=== PATIENT | male | born 1970 | race Caucasian/White ===

== ENCOUNTER 2018-01-05 15:16 | Emergency (ER) | payer OTHER ==
[~2018-01-05] VITALS: Ht 162.6 cm; Wt 81.7 kg
[2018-01-05] MEDS ORDERED: CARBAMAZEPINE200 M5 PO (15:37)
[2018-01-05] MEDS ORDERED: PEPCID20 MG PO (15:37)
[2018-01-05] MEDS ORDERED: ASPIR 8181 MG PO (15:37)
[2018-01-05] MEDS ORDERED: CARBAMAZEPINE100 M2 PO (15:37)
[2018-01-05] MEDS ORDERED: PROZAC20 MG PO (15:38)
[2018-01-05] MEDS ORDERED: INVEGA 3 MG3 MG PO (15:38)
[2018-01-05] MEDS ORDERED: OYSTER SHELL C500 MG PO (15:38)
[2018-01-05] MEDS ORDERED: PAXIL10 MG PO (15:39)
[2018-01-05] MEDS ORDERED: ALDACTONE50 MG PO (15:41)
[2018-01-05] MEDS ORDERED: GABAPENTIN 100100 MG PO (15:41)
[2018-01-05] MEDS ORDERED: LAMICTAL100 MG PO (15:42)
[2018-01-05] MEDS ORDERED: KEPPRA 500 MG500 M1 PO (15:42)
[2018-01-05] MEDS ORDERED: VIMPAT200 MG PO (15:42)
[2018-01-05] MEDS ORDERED: REMERON15 MG PO (15:43)
[2018-01-05] MEDS ORDERED: CARBAMAZEPINE400 M1 PO (15:43)
[2018-01-05] MEDS ORDERED: MINIPRESS2 MG PO (15:44)
[2018-01-05] MEDS ORDERED: PROAIR HFA8.5 GM (15:44)
[2018-01-05 16:08] LABS: ABSOLUTE NEUTROPHILS 5.4 thou/uL (1.4-8.2); BASOPHILS 0.7 % (0.0-2.0); HEMATOCRIT 42.1 % (42.0-52.0); HEMOGLOBIN 14.1 gm/dL (14.0-18.0); LYMPHOCYTES 25.1 % (24.0-44.0); MCH 32.3 pg (26.0-34.0); MCHC 33.6 g/dL (28.0-37.0); MCV 96.2 fL (80.0-100.0); MONOCYTES 6.5 % (1.0-8.0); PLATELET COUNT 228 thou/uL (150-400); POLYS 65.7 % (36.0-66.0); RBC 4.37 mil/uL (4.50-6.00); RDW 13.2 % (10.5-14.5); WBC 8.2 thou/uL (4.0-11.0)
[2018-01-05 16:11] LABS: CALCIUM 9.2 mg/dL (8.5-10.1); CREATININE 0.9 mg/dL (0.7-1.3); POTASSIUM 4.3 mmol/L (3.5-5.1)
[2018-01-05 19:32] VITALS: BP 129/91
== END 2018-01-05 18:48 | disposition home or self-care (01) ==
LOC: ER 15:16
PROVIDERS: Emergency Medicine
DX: G40.89 Other seizures (principal); F20.9 Schizophrenia, unspecified; Z88.2 Allergy status to sulfonamides; Z91.048 Other nonmedicinal substance allergy status; Z88.1 Allergy status to other antibiotic agents; Z88.8 Allergy status to other drugs, medicaments and biological substances

== ENCOUNTER 2018-06-10 18:13 | Inpatient (IN) | payer OTHER ==
[~2018-06-10] VITALS: Ht 167.6 cm; Wt 104.8 kg
--- NOTE | ~2018-06-10 | HC ---
[facility] [place] [address] CONSULTATION Name: YENY CASIANO Room #: 208-[facility] IN M.R.#: [id number] Admission: 06/10/18 Attend Phys: Kerry Melara MD Discharge: Date of : 66 Report #: [id number] THIS REPORT FOR: //name// CC: Johnnie Melara DATE OF SERVICE: 06/11/2018 HISTORY OF PRESENT ILLNESS: This is a 47-year-old male patient who does not provide any reliable history. This patient indicates that he lives in a shelter. He has apparently a longstanding history of seizure disorder. He usually sees Dr. Garrison, who is an epileptologist at [facility]. I do not have any records from them. The patient indicates he gets about 1 seizure a month. He indicates that he may have had another seizure, but he does not remember anything. Talking to the Emergency Room doctor, it would indicate that he may have had more than 1 seizure. The patient has not had any further seizure after coming here. He has a VNS placed. He is on numerous medications. As I understand, attempt is being made to cut back those medications. REVIEW OF SYSTEMS: It is not clear what started his seizures. His history is very poor. Records indicate he also has schizophrenia. He will not give me an answer for one way or another. He does have a history of depression and COPD. Record indicates he also has some dementia. That is his relevant 14-point review of system. PAST MEDICAL HISTORY: Positive for seizure. FAMILY HISTORY: Negative for epilepsy. SOCIAL HISTORY: He does not drink alcohol. PHYSICAL EXAMINATION: Indicates that this patient is alert, responsive and he can follow simple commands. He can tell me what month it is. His cranial nerve examination 2-12 looks unremarkable. Rest of the neurological examination appeared to be his baseline. He has no meningeal sign. He has no carotid bruit. He is moderately built individual. He does not have much dysmorphic features of eyes, ears and face. His cardiac examination is unremarkable. He did have a CT scan in the Emergency Room that did not show any acute process. IMPRESSION AND PLAN: After restarting his medication, he does not appear to have any further seizure. I do not think we should change his medication much. I had talked to the Emergency Room physician last night about difficulty managing patients like this here because we do not have anything, which can be done to the vagus nerve stimulator. The only thing I will suggest is restart the medication and if he continues to do well, he should get an appointment with [address] [address] CONSULTATION Name: YENY CASIANO Room #: 208-P [facility] IN M.R.#: [id number] Admission: 06/10/18 Attend Phys: Kerry Melara MD Discharge: Date of : 66 Report #: [id number] Garrison as soon as possible, but presently, I do not think we should change his medication. More than 50 minutes of time was spent taking care of this patient and majority of that time was spent counseling the patient on above matter as well as coordinating his care. I also talked to his nurses about this patient. I had talked to the nurses earlier today and asked then to call the hospitalist to make sure he is started on the same medication he was on at the shelter and the hospitalist can call me if there is any question <ELECTRONICALLY SIGNED> By: Johnnie Smith MD 06/11/18 2249 1356 1953 Johnnie Smith MD /nt
--- NOTE | ~2018-06-10 | EKG ---
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 06/11/18 0744 1821 20 Saad Castro MD, FACC /EPI
--- NOTE | ~2018-06-10 | EEG ---
[facility] [place] [address] ELECTROENCEPHALOGRAM Name: YENY CASIANO Room #: 208-P [facility] IN M.R.#: [id number] Admission: 06/10/18 Attend Phys: Kerry Melara MD Discharge: Date of : 66 Report #: [id number] THIS REPORT FOR: //name// CC: Johnnie Torresulugajaky Melara DATE OF SERVICE: 06/11/2018 This patient is being evaluated for the possibility of seizure. EEG was done by placing the electrodes by standard 10-20 system of electrode placement. Both referential and sequential montages were used for recording. Background activity does go up to about 9-10 Hz and 30 microvolt. Photic stimulation is unremarkable. The patient's EEG is unstable because it intermittently shows pretty significant slowing on both sides and some suggestion of sharper activity appeared to be present in the left temporal area. Photic stimulation is unremarkable. IMPRESSION: This electroencephalogram is abnormal because it appeared to be unstable where intermittently it becomes pretty slow and somewhat disorganized. That may be because of drowsiness, but some sharper activity appeared to be present arising from the left temporal area. The patient does not show any evidence of status epilepticus. Thank you very much for this referral. By: 1346 1353 Johnnie Smith MD /nt
[~2018-06-10 18:13] MED LIST: ALDACTONE50 MG PO; ASPIR 8181 MG PO; CARBAMAZEPINE100 M2 PO; CARBAMAZEPINE200 M5 PO; CARBAMAZEPINE400 M1 PO; INVEGA 3 MG3 MG PO; KEPPRA 500 MG500 M1 PO; LAMICTAL100 MG PO; MINIPRESS2 MG PO; NEURONTIN600 MG PO; OYSTER SHELL C500 MG PO; PAXIL10 MG PO; PEPCID20 MG PO; PROAIR HFA8.5 GM INH; PROZAC20 MG PO; REMERON15 MG PO; VIMPAT200 MG PO
[2018-06-10 18:14] VITALS: BP 133/87
[2018-06-10 18:40] LABS: ABSOLUTE NEUTROPHILS 4.6 thou/uL (1.4-8.2); BASOPHILS 0.8 % (0.0-2.0); EOSINOPHILS 2.4 % (0.0-3.0); HEMATOCRIT 41.9 % (42.0-52.0); HEMOGLOBIN 14.5 gm/dL (14.0-18.0); LYMPHOCYTES 30.4 % (24.0-44.0); MCH 32.6 pg (26.0-34.0); MCHC 34.5 g/dL (28.0-37.0); MCV 94.4 fL (80.0-100.0); MONOCYTES 7.9 % (1.0-8.0); PLATELET COUNT 212 thou/uL (150-400); POLYS 58.5 % (36.0-66.0); RBC 4.44 mil/uL (4.50-6.00); RDW 12.7 % (10.5-14.5); WBC 7.9 thou/uL (4.0-11.0)
[2018-06-10 18:49] LABS: CALCIUM 9.2 mg/dL (8.5-10.1); CREATININE 0.9 mg/dL (0.7-1.3); POTASSIUM 3.6 mmol/L (3.5-5.1)
[2018-06-10 18:55] LABS: ALBUMIN 3.7 g/dL (3.4-5.0); MAGNESIUM 1.8 mg/dL (1.8-2.4); PHOSPHORUS 4.6 mg/dL (2.5-4.9); TOTAL BILIRUBIN 0.3 mg/dL (<0.1-1.0); TOTAL PROTEIN 7.9 g/dL (6.4-8.2)
[2018-06-10 22:44] VITALS: BP 94/62
[2018-06-10 22:52] VITALS: BP 114/62
[2018-06-10 23:12] VITALS: BP 128/87
[2018-06-11 00:20] LABS: AMP/METHAMP Negative (Negative); BARBITURATES Negative (Negative); BENZODIAZEPINES Negative (Negative); COCAINE Negative (Negative); METHADONE Negative (Negative); OPIATES Negative (Negative); PCP Negative (Negative)
[2018-06-11] MEDS ORDERED: CARBAMAZEPINE400 M1 PO (02:47)
[2018-06-11] MEDS ORDERED: OMEPRAZOLE40 MG PO (02:52)
[2018-06-11] MEDS ORDERED: FLONASE 0.05%50 MCG NASAL (02:55)
[2018-06-11] MEDS ORDERED: ZOLOFT50 MG PO (02:58)
[2018-06-11] MEDS ORDERED: SYMBICORT80 MCG/4.1 INH (03:02)
[2018-06-11] MEDS ORDERED: TYLENOL325 MG PO ×2 (03:04→08:09)
[2018-06-11 04:57] VITALS: BP 110/71
[2018-06-11 08:39] VITALS: BP 128/75
[2018-06-11 11:10] VITALS: BP 107/68
[2018-06-11 12:04] VITALS: BP 128/75
[2018-06-11 14:41] VITALS: BP 122/73
[2018-06-11 14:58] LABS: TSH 3.952 uIU/mL (0.358-3.740)
[2018-06-11 19:55] VITALS: BP 111/67
[2018-06-12 04:45] VITALS: BP 110/70
[2018-06-12 07:21] VITALS: BP 110/73
[2018-06-12 11:10] VITALS: BP 100/61
[2018-06-12] MEDS ORDERED: ASPIR 8181 MG PO (12:29)
[2018-06-12] MEDS ORDERED: VIMPAT200 MG PO (12:33)
[2018-06-12 15:03] VITALS: BP 100/68
[2018-06-12 19:55] VITALS: BP 110/66
[2018-06-13 05:05] VITALS: BP 104/69
[2018-06-13 08:40] VITALS: BP 101/59
[2018-06-13 12:44] VITALS: BP 125/79
[2018-06-14 08:13] LABS: LEVETIRACETAM (KEPPRA) 60.6 ug/mL (10.0-40.0)
== END 2018-06-13 14:37 | DRG 100 ==
LOC: ER 18:13 → 2N 21:55 → EROBS 21:55 → 2N 22:57
PROVIDERS: Emergency Medicine; Nurse Practitioner Acute Care; Psychiatry & Neurology Neuromuscular Medicine
DX: G40.909 Epilepsy, unspecified, not intractable, without status epilepticus (principal); G93.41 Metabolic encephalopathy; F03.90 Unspecified dementia, unspecified severity, without behavioral disturbance, psychotic disturbance, mood disturbance, and anxiety; K21.9 Gastro-esophageal reflux disease without esophagitis; F20.9 Schizophrenia, unspecified; F17.210 Nicotine dependence, cigarettes, uncomplicated; J44.9 Chronic obstructive pulmonary disease, unspecified; F32.9 Major depressive disorder, single episode, unspecified; Z90.49 Acquired absence of other specified parts of digestive tract; Z28.21 Immunization not carried out because of patient refusal; Z88.2 Allergy status to sulfonamides; Z88.8 Allergy status to other drugs, medicaments and biological substances; Z79.899 Other long term (current) drug therapy
CPT/HCPCS: 10081

== ENCOUNTER 2018-07-23 22:14 | Emergency (ER) | payer OTHER ==
[~2018-07-23] VITALS: Ht 165.1 cm; Wt 95.3 kg
[~2018-07-23 22:14] MED LIST changes: +FLONASE 0.05%50 MCG NASAL; +OMEPRAZOLE40 MG PO; +SYMBICORT80 MCG/4.1 INH; +TYLENOL325 MG PO; +ZOLOFT50 MG PO
[2018-07-23 22:46] LABS: ABSOLUTE NEUTROPHILS 4.6 thou/uL (1.4-8.2); BASOPHILS 0.6 % (0.0-2.0); HEMATOCRIT 40.4 % (42.0-52.0); HEMOGLOBIN 13.9 gm/dL (14.0-18.0); LYMPHOCYTES 34.4 % (24.0-44.0); MCH 32.6 pg (26.0-34.0); MCHC 34.5 g/dL (28.0-37.0); MCV 94.6 fL (80.0-100.0); MONOCYTES 7.2 % (1.0-8.0); PLATELET COUNT 223 thou/uL (150-400); POLYS 54.8 % (36.0-66.0); RBC 4.27 mil/uL (4.50-6.00); RDW 12.8 % (10.5-14.5); WBC 8.3 thou/uL (4.0-11.0)
[2018-07-23 22:49] LABS: ANION GAP 12 mmol/L (7-16); BUN 11 mg/dL (7-18); CALCIUM 9.2 mg/dL (8.5-10.1); CHLORIDE 104 mmol/L (98-107); CO2 25 mmol/L (21-32); CREATININE 0.9 mg/dL (0.7-1.3); GLUCOSE 145 mg/dL (74-106); SODIUM 141 mmol/L (136-145)
[2018-07-23 22:58] LABS: ALBUMIN 3.6 g/dL (3.4-5.0); SGOT 21 U/L (15-37); SGPT 32 U/L (30-65); TOTAL BILIRUBIN 0.2 mg/dL (<0.1-1.0); TOTAL PROTEIN 7.4 g/dL (6.4-8.2); TROPONIN-I <0.06 ng/mL (<0.06)
[2018-07-24 01:32] VITALS: BP 115/62
--- NOTE | 2018-07-24 18:26 | EKG ---
[address] [address] ELECTROCARDIOGRAM REPORT Name: YENY CASIANO Room #: [facility] Hyde#: [id number] Admission: 07/23/18 Attend Phys: Discharge: 07/24/18 Date of : 66 Report #: [id number] THIS REPORT FOR: //name// [facility] ED Test Date: 2018-07-23 Test Time: 22:21:09 Pat Name: YENY CASIANO Department: Room: Gender: Software Sales Consultant: CONNIE : 1970 Requested By: Soledad Lyon Order Number: [id number] MD: Kael Greenfield Measurements Intervals [place] Rate: 73 P: 40 RI: 157 QRS: 0 QRSD: 87 T: 83 QT: 379 QTc: 418 Interpretive Statements Sinus rhythm Compared to ECG 06/10/2018 18:21:18 ST (T wave) deviation no longer present Electronically Signed On 07-24-2018 18:26:49 DIRECT SALES CONSULTANT by Kael Greenfield [email or web address] <ELECTRONICALLY SIGNED> By: Kael Greenfield MD 07/24/18 1826 20 20 Kael Greenfield MD /MAEVE
== END 2018-07-24 01:32 | disposition home or self-care (01) ==
LOC: ER 22:14
PROVIDERS: Student in an Organized Health Care Education/Training Program
DX: R07.89 Other chest pain (principal); K21.9 Gastro-esophageal reflux disease without esophagitis; J44.9 Chronic obstructive pulmonary disease, unspecified; F20.9 Schizophrenia, unspecified; F32.9 Major depressive disorder, single episode, unspecified; F03.90 Unspecified dementia, unspecified severity, without behavioral disturbance, psychotic disturbance, mood disturbance, and anxiety; Z90.49 Acquired absence of other specified parts of digestive tract; Z88.2 Allergy status to sulfonamides; Z88.8 Allergy status to other drugs, medicaments and biological substances; F17.210 Nicotine dependence, cigarettes, uncomplicated

== ENCOUNTER 2019-03-05 10:15 | Inpatient (IN) | payer OTHER ==
[~2019-03-05] VITALS: Ht 165.1 cm; Wt 98.9 kg
--- NOTE | ~2019-03-05 | EMS ---
[address] [address] EMS Patient Care Report Name: YENY CASIANO Room #: 170-9 ADM IN M.R.#: [id number] Admission: 03/05/19 Attend Phys: Raimundo Ziegler MD Discharge: Date of : 66 Report #: [id number] THIS REPORT FOR: //name// Report Transmitted: 03/05/2019 12:28 EMS Care Summary [place], [place]/[facility] Incident [id number] @ 03/05/2019 09:44 Incident Location [id number] [place] [address] 108 Patient YENY CASIANO Male, 48 Years 1970 Patient Address [id number] [place] [address] [address] [place] [id number] Patient History Chronic Obstructive Pulmonary Disease (COPD),Seizures,Depression,Schizoaffective Disorder, Patient Allergies Sulfa,Dilantin,Topamax, Patient Medications Ventolin, Acetaminophen, Aspirin, Levetiracetam, Gabapentin, Sertraline, Symbicort, Carbamazepine, Omeprazole, Chief Complaint Altered mental status Disposition Transported No Lights/[place] Reason Convulsions/Seizure Transported To [facility] Narrative 48 y/o male with altered mental status. [facility] [address] [place] [address] EMS Patient Care Report Name: YENY CASIANO Room #: 170-9 ADM IN Mary Ellen#: [id number] Admission: 03/05/19 Attend Phys: Raimundo Ziegler MD Discharge: Date of : 66 Report #: [id number] On arrival found pt in PR bed with staff on scene. PR staff stated pt had been complaining of abdominal pain earlier this morning but when they came to check on him before they called 911 he was altered. Staff stated normally he is alert and talking without difficulty but now he is not acting normal. EMS spoke pt's name and he would look at EMS but then would have a vacant stare and appeared to not be focusing on anything. Staff stated pt has a hx of seizures. Pt appeared to possibly be having absence seizures. Pt sat up in bed and with assistance transferred to the stretcher. Once in ambulance EMS attempted an IV x2. Pt would pull back from the IV start and yell "Oww" but would have no other reaction. Staff stated there was no hospital on pt's chart so EMS took pt to closest hospital, [facility] ED. EMS monitored pt/VS/ECG en route to [facility] ED. Transferred care of pt to [facility] ED RN without incident. Initial Vitals @10:10P: 66,BP: 109/73,SpO2: 94, @09:59P: 72,R: 18,BP: 142/88,Pain: 0/10,GCS: 13,Glucose: 91,CO: 4,SpO2: 95,Revised Trauma: 12, Assessments @09:52MENTAL:Other,Person Oriented,SKIN:No Abnormalities,HEENT:Head/Face: No Abnormalities,Eyes: No Abnormalities,Neck/Airway: No Abnormalities,LUNG SOUNDS:General: No Abnormalities,Left Upper: No Abnormalities,Right Upper: No Abnormalities,Left Lower: No Abnormalities,Right Lower: No Abnormalities,ABDOMEN:General: No Abnormalities,Left Upper: No Abnormalities,Right Upper: No Abnormalities,Left Lower: No Abnormalities,Right Lower: No Abnormalities,PELVIS//GI:No Abnormalities,EXTREMITIES:Capillary Refill: Left Upper: < 2 Sec,Left Arm: No Abnormalities,Right Arm: No Abnormalities,Left Leg: No Abnormalities,Right Leg: No Abnormalities,PULSE:Radial: 2+ Normal,NEURO:No Abnormalities, Impression Altered Mental Status Procedures @09:52ALS AssessmentResponse: Not ApplicableSucceeded@10:03Saline Lock 0cc (20 ga) Site: Hand-LeftResponse: UnchangedFailed@10:00Saline Lock 0cc (20 ga) Site: Antecubital-LeftResponse: UnchangedFailed Timeline 09:43,Call Received 09:43,Dispatch Notified 09:44,Dispatched 09:46,[place] [address] EMS Patient Care Report Name: YENY CASIANO Room #: 170-9 ADM IN ..#: [id number] Admission: 03/05/19 Attend Phys: Raimundo Ziegler MD Discharge: Date of : 66 Report #: [id number] 09:50,On Scene 09:52,At Patient 09:52,ALS Assessment,Response: Not ApplicableSucceeded, 09:59,BP: 142/88 M,PULSE: 72,RR: 18 R,SPO2: 95 Ox,ETCO2: ,B,PAIN: 0,GCS: 13, 10:00,Saline Lock 0cc 20 ga Site: Antecubital-Left,Response: UnchangedFailed, 10:03,Saline Lock 0cc 20 ga Site: Hand-Left,Response: UnchangedFailed, 10:06,Depart Scene 10:10,BP: 109/73 M,PULSE: 66,RR: R,SPO2: 94 Ox,ETCO2: ,BG: ,PAIN: ,GCS: , 10:13,At Destination 10:25,Call Closed Disclaimer v1.1 Copyright 2019 [employer] This EMS Care Summary contains data elements from the applicable legal record (which may be displayed differently). It is designed to provide pertinent information for the following purposes: continuity of care, clinical quality, and state data reporting. The complete legal record is available to ED staff and administrators of the receiving hospital in ES's Patient Tracker. All data is provided "as is."
[2019-03-05 10:20] VITALS: BP 147/88
[2019-03-05 10:44] LABS: ABSOLUTE NEUTROPHILS 4.1 thou/uL (1.4-8.2); BASOPHILS 1.1 % (0.0-2.0); EOSINOPHILS 2.4 % (0.0-3.0); HEMATOCRIT 44.7 % (42.0-52.0); HEMOGLOBIN 15.3 gm/dL (14.0-18.0); LYMPHOCYTES 31.9 % (24.0-44.0); MCH 32.2 pg (26.0-34.0); MCHC 34.3 g/dL (28.0-37.0); MCV 93.9 fL (80.0-100.0); MONOCYTES 7.3 % (1.0-8.0); PLATELET COUNT 221 thou/uL (150-400); POLYS 57.3 % (36.0-66.0); RBC 4.76 mil/uL (4.50-6.00); RDW 13.3 % (10.5-14.5); WBC 7.2 thou/uL (4.0-11.0)
[2019-03-05 10:50] LABS: ANION GAP 11 mmol/L (7-16); BUN 10 mg/dL (7-18); CALCIUM 9.7 mg/dL (8.5-10.1); CHLORIDE 104 mmol/L (98-107); CO2 23 mmol/L (21-32); CREATININE 0.9 mg/dL (0.7-1.3); GLUCOSE 125 mg/dL (74-106); POTASSIUM 4.6 mmol/L (3.5-5.1); SODIUM 138 mmol/L (136-145)
[2019-03-05 11:01] LABS: LIPASE 96 U/L (73-393); MAGNESIUM 1.9 mg/dL (1.8-2.4); SGOT 34 U/L (15-37); SGPT 70 U/L (30-65); TOTAL BILIRUBIN 0.3 mg/dL (<0.1-1.0); TOTAL PROTEIN 8.5 g/dL (6.4-8.2); TROPONIN-I <0.06 ng/mL (<0.06)
[2019-03-05 11:02] LABS: URINE BILIRUBIN NEGATIVE (Negative); URINE BLOOD 1+ (Negative); URINE CLARITY CLEAR; URINE COLOR YELLOW; URINE GLUCOSE-RANDOM* NEGATIVE (Negative); URINE KETONES NEGATIVE (Negative); URINE LEUKOCYTES-REFLEX NEGATIVE (Negative); URINE NITRITE-REFLEX NEGATIVE (Negative); URINE PROTEIN (DIPSTICK) NEGATIVE (Negative); URINE UROBILINOGEN 0.2 E.U./dl (0.2-1.0)
[2019-03-05 11:08] LABS: AMP/METHAMP Negative (Negative); BARBITURATES Negative (Negative); BENZODIAZEPINES Negative (Negative); COCAINE Negative (Negative); METHADONE Negative (Negative); OPIATES Negative (Negative); PCP Negative (Negative)
[2019-03-05 11:10] LABS: BACTERIA-REFLEX 1-9 Few /HPF (None Seen); CASTS None Seen /LPF (None Seen); CRYSTALS None Seen /LPF (None Seen); MUCUS 4-6 Moderate strn/LPF (None Seen); SQUAMOUS None Seen /LPF (0-3); URINE WBC-REFLEX 0-5 Rare /HPF (0-5)
[2019-03-05 11:11] LABS: URINE RBC 3-10 Few /HPF (0-2)
[2019-03-05 12:30] VITALS: BP 140/82
[2019-03-05 13:19] VITALS: BP 150/86
[2019-03-05 13:30] VITALS: BP 147/57
[2019-03-05] MEDS ORDERED: VIMPAT200 MG PO (15:09)
[2019-03-05 15:26] VITALS: BP 115/72
--- NOTE | 2019-03-05 18:05 | NUR ---
PATIENT ADMITTED TO UNIT AT THIS TIME. HE IS QUITE CONFUSED. UNABLE TO SPEAK INTELLIGIBLY. HE WILL MUMBLE SOMETHING BUT MOSTLY YELL OUT LOUD. NOT ABLE TO TELL NURSE IF HE HAS TO USE BATHROOM BUT WILL TRY TO LEAVE THE BED WHILE SCREAMING AND LOOKING FOR A PLACE TO SEAT. HE WAS NOTED TO HAVE A SMALL SEIZURE. ASKED IF HE HAS PAIN AND HE NODED. STATES " VERY BAD, VERY BAD" . PRN PAIN MEDS ADMINISTERED. HE IS NOW SLEEPING. OCCASIONALLY INCONTINENT OF BLADDER. WILL CONT WITH PLAN OF CARE.
[2019-03-05 20:14] VITALS: BP 133/79
[2019-03-06 03:34] VITALS: BP 98/62
[2019-03-06 05:40] LABS: HEMATOCRIT 39.2 % (42.0-52.0); MCH 32.2 pg (26.0-34.0); MCHC 33.9 g/dL (28.0-37.0); MCV 95.1 fL (80.0-100.0); PLATELET COUNT 196 thou/uL (150-400); RBC 4.12 mil/uL (4.50-6.00); RDW 13.5 % (10.5-14.5); WBC 6.5 thou/uL (4.0-11.0)
[2019-03-06 05:45] LABS: HEMOGLOBIN 13.3 gm/dL (14.0-18.0)
[2019-03-06 05:46] LABS: BASOPHILS 0.4 % (0.0-2.0); EOSINOPHILS 3.3 % (0.0-3.0); LYMPHOCYTES 40.4 % (24.0-44.0); MONOCYTES 9.2 % (1.0-8.0); POLYS 46.7 % (36.0-66.0)
--- NOTE | 2019-03-06 05:54 | NUR ---
ASSUMED CARE FOR PT AT 1845. PT WAS FLAT EFFECT AND WAS NOT SPEAKING ANY WORDS. THE SHIFT PROGRESSED PT WAS SPEAKING AGAIN. AT DURING HOURLY ROUNDS AT 0415 PT "ASKED WHAT TIME IT WAS," NURSE SAID 415, PT STATED "AM OR PM", AND "IF HE COULD HAVE A SODA TO DRINK?" PT TOOK ALL HIS EVENING MEDICATIONS ORALLY WITH SOME WATER ALSO. [facility] CONSULTING WITH TEMO PROCTOR. FOLLOWING POC WITH SEIZURE AND FALL PRECAUTIONS. POC WITH IVF. HOURLY ROUNDING.
[2019-03-06 06:06] LABS: ANION GAP 12 mmol/L (7-16); BUN 11 mg/dL (7-18); CALCIUM 8.5 mg/dL (8.5-10.1); CHLORIDE 108 mmol/L (98-107); CO2 24 mmol/L (21-32); CREATININE 0.8 mg/dL (0.7-1.3); GLUCOSE 114 mg/dL (74-106); MAGNESIUM 1.8 mg/dL (1.8-2.4); POTASSIUM 3.8 mmol/L (3.5-5.1); SODIUM 144 mmol/L (136-145); TROPONIN-I <0.06 ng/mL (<0.06)
--- NOTE | 2019-03-06 07:42 | EKG ---
[place] [address] [facility] [place] [address] ELECTROCARDIOGRAM REPORT Name: YENY CASIANO Room #: 362-P ADM IN M.R.#: [id number] Admission: 03/05/19 Attend Phys: Raimundo Ziegler MD Discharge: Date of : 66 Report #: [id number] THIS REPORT FOR: //name// 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
[2019-03-06 07:51] VITALS: BP 120/70
[2019-03-06 11:41] VITALS: BP 127/71
--- NOTE | 2019-03-06 12:31 | NUR ---
DISCHARGE PLANNING. ANTICIPATED WEEKEND DISCHARGE. CLINICAL INFORMATION FAXED TO TARAH [facility] ADMISSIONS LIAISON. CALL PLACED TO [facility] TO NOTIFY OF DISCHARGE PLAN. PLEASE CONTACT [facility] AT [phone] TO FACILITATE DISCHARGE BACK TO [facility] AND TRANSPORTATION. [facility] CONTACT NUMBER [phone] FAX [phone]. PLEASE FAX DISCHARGE ORDERS AND DISCHARGE SUMMARY TO [facility] ONCE COMPLETED AND SIGNED PER ATTENDING PHYSICIAN. THANK YOU
--- NOTE | 2019-03-06 14:11 | NUR ---
INITIAL ASSESSMENT: JAIRO reviewed chart and spoke with nursing and attending physician. Pt was admitted from [facility] due to AMS. Pt with hx of depression/schizoaffective disorder. Pt is progressing towards goals for discharge and may be ready for discharge back to [facility] tomorrow. JAIRO left voice message for pt's mother, Bridget ([phone]) to provide update and notify of anticipated discharge. senior program planner sent info and discussed with [facility] liaison. Pt is able to d/c back to [facility] over the weekend if medically stable. Pt will need a chart copy. SW is available to assist should needs arise. [facility]-- Liaison-Amy: [phone]
[2019-03-06 15:43] VITALS: BP 137/75
--- NOTE | 2019-03-06 19:40 | NUR ---
PATIENT HAS RESTED IN BED THROUGH THE DAY. RESPIRATIONS ARE NON LABORED. CALLS APPROPRAITELY FOR TRANSFERS. NO COMPLAIN OF PAIN. NO SEIZURES NOTED. WILL CONT WITH PLAN OF CARE.
[2019-03-06 20:05] VITALS: BP 131/72
--- NOTE | 2019-03-06 22:24 | NUR ---
PATIENTS MEDS WERE GIVEN, PATIENT STABLE, PATIENT TRANFERED TO 4W. REPORT CALLED. HECTOR
[2019-03-06 22:39] VITALS: BP 129/79
--- NOTE | 2019-03-06 22:41 | NUR ---
PATIENT ALERT AND ORIENTED X4. ARRIVED VIA BED AND TWO NURSES FROM ROOM 362. COOPERATIVE WITH CARE. DENIES PAIN. WILL MONITOR. ARRIVED AT 2225.
[2019-03-07 04:54] VITALS: BP 109/76
--- NOTE | 2019-03-07 06:34 | NUR ---
PATIENT ALERT AND ORIENTED X4. COOPERATIVE WITH CARE. SCD'S IN PLACE. DENIES PAIN. SLEPT WELL DURING THE NIGHT. PATIENT FREE FROM SEIZURE DURING THE NIGHT. BED RAILS UP AND PADDED PER PROTOCOL. RESTING QUIETLY. WILL MONITOR.
[2019-03-07 07:56] VITALS: BP 110/61
[2019-03-07 16:07] VITALS: BP 115/62
[2019-03-07 19:40] VITALS: BP 138/88
--- NOTE | 2019-03-07 20:01 | NUR ---
Assumed pt care this am, aletr and oriented x 4. VS stable, stedy on his gait. Pt took a shower on his own with no issues. Pt did not have any seizues nor had any signs or verbalizations of distress noted. DC orders given, chart copy sent to [facility] fax [phone], called [facility] [phone] and blanka Reyes [phone] for faclilitation of transport as per our CM notes, Called 3 times and left voice mails for call back but have not received any, informed rn house supervisor. AWaiting response from Amy alejandre to the night nurse.
--- NOTE | 2019-03-08 01:37 | NUR ---
ASSUMED CARE AROUND 1900. AXOX3. CHART COPY SENT TO [facility]. CONFIRMATION ON CHART. IV REPLCAED TO R HAND 22G TOLERATED PROCEDURE WELL. CARE TRANSFERRED TO ANOTHER RN AT 2300. NO S/S ACUTE DISTRESS NOTED OR REPORTED UPON TRANSFER OF CARE.
--- NOTE | 2019-03-08 03:05 | NUR ---
SPOKE TO NIK AT [facility]. SENT FAX AGAIN TO [phone]. PER JOSE ZARAGOZA TO D/C PT IN AM BACK TO [facility]
--- NOTE | 2019-03-08 04:45 | NUR ---
PATIENT ALERT AND ORIENTED X4. C/O PAIN ALL OVER, MED GIVEN. SLEPT MOST OF NIGHT. RAILS PADDED FOR HX OF SEIZURES. WORKING TOWARDS POC.
[2019-03-08 08:00] VITALS: BP 125/80
--- NOTE | 2019-03-08 10:42 | NUR ---
ASSUMED CARE OF PATIENT AT 0715, PATIENT ALERT AMD ORIENTED X 4. UP WITH SBA. PATIENT DENIES PAIN THIS AM. PATIENT WILL DISCHARGE TO [facility]. REPORT WAS GIVEN BY YOSHI/RN TO THE FACILITY. PATIENT HAD RIGHT HAND IV, REMOVED PRIOR TO DISCHARGE. HX OF SEIZURES, SIDE RAILS PADDED. DR COOK HERE THIS AM TO SEE THE PATIENT, PATIENT STATES HE FEELS BETTER. TRANSPORT HERE TO TRANSPORT PATIENT TO FACILITY, ALL DISCHARGE PAPERWORK AND ALL PERSONAL BELONGINGS SENT WITH THE PATIENT.
== END 2019-03-08 15:43 | DRG 100 ==
LOC: ER 10:15 → 3W 12:20 → EROBS 12:20 → 3W 13:34 → 4W 03-06 22:20
PROVIDERS: Emergency Medicine; Nurse Practitioner; ADMIT Hospitalist
DX: G40.909 Epilepsy, unspecified, not intractable, without status epilepticus (principal); G93.41 Metabolic encephalopathy; F32.9 Major depressive disorder, single episode, unspecified; F43.10 Post-traumatic stress disorder, unspecified; J44.9 Chronic obstructive pulmonary disease, unspecified; K21.9 Gastro-esophageal reflux disease without esophagitis; F03.90 Unspecified dementia, unspecified severity, without behavioral disturbance, psychotic disturbance, mood disturbance, and anxiety; F25.9 Schizoaffective disorder, unspecified; F17.210 Nicotine dependence, cigarettes, uncomplicated; Z90.49 Acquired absence of other specified parts of digestive tract; Z79.899 Other long term (current) drug therapy; Z88.2 Allergy status to sulfonamides; Z88.8 Allergy status to other drugs, medicaments and biological substances
CPT/HCPCS: 10045; 10879

== ENCOUNTER 2019-07-04 23:06 | Emergency (ER) | payer OTHER ==
[~2019-07-04] VITALS: Ht 172.7 cm; Wt 90.7 kg
[2019-07-04 23:43] LABS: ABSOLUTE NEUTROPHILS 4.8 thou/uL (1.4-8.2); BASOPHILS 0.9 % (0.0-2.0); EOSINOPHILS 3.2 % (0.0-3.0); HEMATOCRIT 45.3 % (42.0-52.0); HEMOGLOBIN 15.1 gm/dL (14.0-18.0); LYMPHOCYTES 29.5 % (24.0-44.0); MCH 31.9 pg (26.0-34.0); MCHC 33.4 g/dL (28.0-37.0); MCV 95.6 fL (80.0-100.0); MONOCYTES 8.2 % (1.0-8.0); PLATELET COUNT 282 thou/uL (150-400); POLYS 58.2 % (36.0-66.0); RBC 4.73 mil/uL (4.50-6.00); RDW 12.9 % (10.5-14.5); WBC 8.2 thou/uL (4.0-11.0)
[2019-07-04 23:50] LABS: ANION GAP 9 mmol/L (7-16); BUN 13 mg/dL (7-18); CALCIUM 9.9 mg/dL (8.5-10.1); CHLORIDE 103 mmol/L (98-107); CO2 27 mmol/L (21-32); CREATININE 1.1 mg/dL (0.7-1.3); GLUCOSE 141 mg/dL (74-106); POTASSIUM 4.7 mmol/L (3.5-5.1); SODIUM 139 mmol/L (136-145)
[2019-07-05] LABS: ALBUMIN 3.7 g/dL (3.4-5.0); SGOT 69 U/L (15-37); SGPT 97 U/L (30-65); TOTAL BILIRUBIN 0.3 mg/dL (<0.1-1.0); TOTAL PROTEIN 8.6 g/dL (6.4-8.2); TROPONIN-I <0.06 ng/mL (<0.06)
[2019-07-05] MEDS ORDERED: NICOTINE TRANSD21 M1 ×2 (00:32→00:33)
[2019-07-05] MEDS ORDERED: SYMBICORT80 MCG/4.1 INH (00:35)
[2019-07-05] MEDS ORDERED: VIMPAT200 MG PO (00:36)
[2019-07-05] MEDS ORDERED: LAMOTRIGINE250 MG PO (00:38)
[2019-07-05 01:54] LABS: URINE BILIRUBIN NEGATIVE (Negative); URINE BLOOD NEGATIVE (Negative); URINE CLARITY CLEAR; URINE COLOR YELLOW; URINE GLUCOSE-RANDOM* NEGATIVE (Negative); URINE KETONES NEGATIVE (Negative); URINE LEUKOCYTES-REFLEX NEGATIVE (Negative); URINE NITRITE-REFLEX NEGATIVE (Negative); URINE PROTEIN (DIPSTICK) NEGATIVE (Negative); URINE SPECIFIC GRAVITY 1.025 (1.005-1.035); URINE UROBILINOGEN 0.2 E.U./dl (0.2-1.0)
[2019-07-05 02:40] LABS: AMP/METHAMP Negative (Negative); BARBITURATES Negative (Negative); BENZODIAZEPINES Negative (Negative); COCAINE Negative (Negative); METHADONE Negative (Negative); OPIATES Negative (Negative); PCP Negative (Negative)
[2019-07-05 05:16] VITALS: BP 116/73
--- NOTE | 2019-07-05 11:19 | EKG ---
[place] [address] [facility] [place] [address] ELECTROCARDIOGRAM REPORT Name: STEPHENIEYENY Room #: [facility] Hyde#: [id number] Admission: 07/04/19 Attend Phys: Discharge: 07/05/19 Date of : 66 Report #: [id number] THIS REPORT FOR: //name// 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: : 1970 Requested By: Sabrina Zamora Order Number: [id number] MD: Kael Greenfield Measurements Intervals [place] Rate: 103 P: 38 AL: 159 QRS: -15 QRSD: 85 T: 90 QT: 333 QTc: 436 Interpretive Statements Sinus tachycardia Borderline left axis deviation Abnormal R-wave progression, late transition Nonspecific T abnrm, anterolateral leads Baseline wander in lead(s) V1,V2 Compared to ECG 03/05/2019 11:41:17 Electronically Signed On 07-05-2019 11:19:30 BUGGY LADLE TENDER by Kael Greenfield [email or web address] <ELECTRONICALLY SIGNED> By: Kael Greenfield MD 07/05/19 1119 2337 2337 Kael Greenfield MD /EPI
== END 2019-07-05 05:15 ==
LOC: ER 23:06
PROVIDERS: Physician Assistant
DX: R56.9 Unspecified convulsions (principal); F20.9 Schizophrenia, unspecified; J44.9 Chronic obstructive pulmonary disease, unspecified; F32.9 Major depressive disorder, single episode, unspecified; F17.210 Nicotine dependence, cigarettes, uncomplicated; Z90.49 Acquired absence of other specified parts of digestive tract; Z91.048 Other nonmedicinal substance allergy status; Z88.2 Allergy status to sulfonamides; Z88.8 Allergy status to other drugs, medicaments and biological substances

== ENCOUNTER 2019-08-13 04:27 | Emergency (ER) | payer OTHER ==
[~2019-08-13] VITALS: Ht 165.1 cm; Wt 98.9 kg
[~2019-08-13 04:27] MED LIST changes: +LAMOTRIGINE250 MG PO; +NICOTINE TRANSD21 M1
[2019-08-13 05:26] LABS: ABSOLUTE NEUTROPHILS 3.9 thou/uL (1.4-8.2); BASOPHILS 0.4 % (0.0-2.0); EOSINOPHILS 2.5 % (0.0-3.0); HEMATOCRIT 40.5 % (42.0-52.0); HEMOGLOBIN 13.4 gm/dL (14.0-18.0); LYMPHOCYTES 22.3 % (24.0-44.0); MCH 31.9 pg (26.0-34.0); MCV 96.6 fL (80.0-100.0); MONOCYTES 7.3 % (1.0-8.0); PLATELET COUNT 222 thou/uL (150-400); POLYS 67.5 % (36.0-66.0); RDW 13.3 % (10.5-14.5); WBC 5.8 thou/uL (4.0-11.0)
[2019-08-13] MEDS ORDERED: FISH OIL 1,0001 EAC9 PO (05:48)
[2019-08-13] MEDS ORDERED: FLEXERIL PO (05:48)
[2019-08-13] MEDS ORDERED: FENOFIBRATE160 MG PO (05:48)
[2019-08-13] MEDS ORDERED: LAMICTAL100 MG PO (05:49)
[2019-08-13] MEDS ORDERED: KEPPRA XR500 MG PO (05:49)
[2019-08-13] MEDS ORDERED: OMEPRAZOLE 20 M20 M1 PO (05:49)
[2019-08-13] MEDS ORDERED: ATIVAN1 M1 PO (05:50)
[2019-08-13] MEDS ORDERED: LORAZEPAM0.5 MG/1 M IM (05:50)
[2019-08-13 06:02] LABS: ANION GAP 8 mmol/L (7-16); BUN 11 mg/dL (7-18); CALCIUM 8.8 mg/dL (8.5-10.1); CHLORIDE 102 mmol/L (98-107); CO2 30 mmol/L (21-32); CREATININE 0.9 mg/dL (0.7-1.3); GLUCOSE 167 mg/dL (74-106); POTASSIUM 4.3 mmol/L (3.5-5.1); SODIUM 140 mmol/L (136-145)
[2019-08-13 06:10] LABS: ALBUMIN 3.5 g/dL (3.4-5.0); LIPASE 90 U/L (73-393); MAGNESIUM 1.9 mg/dL (1.8-2.4); SGOT 56 U/L (15-37); SGPT 90 U/L (30-65); TOTAL BILIRUBIN 0.5 mg/dL (<0.1-1.0); TOTAL PROTEIN 7.9 g/dL (6.4-8.2); TROPONIN-I <0.06 ng/mL (<0.06)
[2019-08-13] MEDS ORDERED: ZOFRAN ODT4 MG PO (07:49)
[2019-08-13 07:55] LABS: URINE BILIRUBIN NEGATIVE (Negative); URINE BLOOD NEGATIVE (Negative); URINE CLARITY CLEAR; URINE COLOR YELLOW; URINE GLUCOSE-RANDOM* NEGATIVE (Negative); URINE KETONES NEGATIVE (Negative); URINE LEUKOCYTES-REFLEX NEGATIVE (Negative); URINE NITRITE-REFLEX NEGATIVE (Negative); URINE PROTEIN (DIPSTICK) NEGATIVE (Negative); URINE SPECIFIC GRAVITY <= 1.005 (1.005-1.035); URINE UROBILINOGEN 0.2 E.U./dl (0.2-1.0)
[2019-08-13 08:06] LABS: AMP/METHAMP Negative (Negative); BARBITURATES Negative (Negative); BENZODIAZEPINES Negative (Negative); COCAINE Negative (Negative); METHADONE Negative (Negative); OPIATES Negative (Negative); PCP Negative (Negative)
[2019-08-13 08:37] VITALS: BP 121/78
--- NOTE | 2019-08-13 17:23 | EKG ---
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: : 1970 Requested By: Mello Newsome Order Number: [id number] MD: Kael Greenfield Measurements Intervals [place] Rate: 91 P: 35 WI: 167 QRS: -11 QRSD: 90 T: 88 QT: 359 QTc: 442 Interpretive Statements Sinus rhythm Nonspecific T abnrm, anterolateral leads Compared to ECG 07/04/2019 23:37:14 Sinus tachycardia no longer present Electronically Signed On 08-13-2019 17:22:55 FOOD AND BEVERAGE CASHIER by Kael Greenfield [email or web address] <ELECTRONICALLY SIGNED> By: Kael Greenfield MD 08/13/19 1722 0438 Kael Greenfield MD /MAEVE
== END 2019-08-13 09:10 | disposition home or self-care (01) ==
LOC: ER 04:27
PROVIDERS: Emergency Medicine
DX: R10.84 Generalized abdominal pain (principal); J44.9 Chronic obstructive pulmonary disease, unspecified; K21.9 Gastro-esophageal reflux disease without esophagitis; R11.2 Nausea with vomiting, unspecified; G43.909 Migraine, unspecified, not intractable, without status migrainosus; R56.9 Unspecified convulsions; F20.9 Schizophrenia, unspecified; Z88.1 Allergy status to other antibiotic agents; Z88.2 Allergy status to sulfonamides; Z88.8 Allergy status to other drugs, medicaments and biological substances

== ENCOUNTER 2019-08-26 09:55 | Inpatient (IN) | payer OTHER ==
[~2019-08-26] VITALS: Ht 182.9 cm; Wt 102.0 kg
[2019-08-26] VITALS (8 sets, daily range): BP systolic 133–164; BP diastolic 85–98
[~2019-08-26 09:55] MED LIST changes: +ATIVAN1 M1 PO; +FENOFIBRATE160 MG PO; +FISH OIL 1,0001 EAC9 PO; +FLEXERIL PO; +KEPPRA XR500 MG PO; +LORAZEPAM0.5 MG/1 M IM; +OMEPRAZOLE 20 M20 M1 PO; +ZOFRAN ODT4 MG PO
[2019-08-26 10:28] LABS: ABSOLUTE NEUTROPHILS 4.1 thou/uL (1.4-8.2); BASOPHILS 0.8 % (0.0-2.0); EOSINOPHILS 2.9 % (0.0-3.0); HEMATOCRIT 43.4 % (42.0-52.0); HEMOGLOBIN 14.3 gm/dL (14.0-18.0); LYMPHOCYTES 30.7 % (24.0-44.0); MCH 31.5 pg (26.0-34.0); MCHC 32.8 g/dL (28.0-37.0); MCV 96.1 fL (80.0-100.0); MONOCYTES 8.2 % (1.0-8.0); PLATELET COUNT 257 thou/uL (150-400); POLYS 57.4 % (36.0-66.0); RBC 4.52 mil/uL (4.50-6.00); RDW 13.1 % (10.5-14.5); WBC 7.2 thou/uL (4.0-11.0)
[2019-08-26 10:38] LABS: CALCIUM 9.2 mg/dL (8.5-10.1); CREATININE 0.9 mg/dL (0.7-1.3); MAGNESIUM 1.8 mg/dL (1.8-2.4)
[2019-08-26 13:26] LABS: URINE BILIRUBIN NEGATIVE (Negative); URINE BLOOD 2+ (Negative); URINE CLARITY CLEAR; URINE COLOR YELLOW; URINE GLUCOSE-RANDOM* NEGATIVE (Negative); URINE KETONES NEGATIVE (Negative); URINE LEUKOCYTES-REFLEX NEGATIVE (Negative); URINE NITRITE-REFLEX NEGATIVE (Negative); URINE PROTEIN (DIPSTICK) NEGATIVE (Negative); URINE UROBILINOGEN 0.2 E.U./dl (0.2-1.0)
[2019-08-26 13:39] LABS: BACTERIA-REFLEX 1-9 Few /HPF (None Seen); CASTS None Seen /LPF (None Seen); CRYSTALS None Seen /LPF (None Seen); SQUAMOUS None Seen /LPF (0-3); URINE RBC 3-10 Few /HPF (0-2); URINE WBC-REFLEX 0-5 Rare /HPF (0-5)
[2019-08-26 14:45] LABS: AMP/METHAMP Negative (Negative); BARBITURATES Negative (Negative); BENZODIAZEPINES Negative (Negative); COCAINE Negative (Negative); METHADONE Negative (Negative); OPIATES Negative (Negative); PCP Negative (Negative)
--- NOTE | 2019-08-26 18:38 | NUR ---
REPORT CALLED FROM MIRLANDE IN ER.
[2019-08-27] VITALS (79 sets, daily range): BP systolic 110–150; BP diastolic 65–116
--- NOTE | 2019-08-27 00:30 | NUR ---
PT TRANSFERED FROM CCU TO ICU AT 2200. PT NONVERBAL, EYES ROLLING AND HEAD SHAKING ON ARRIVAL. PT WAS CONNECTED TO THE MONITOR. PT TACHYCARDIC. PT ON ROOM AIR. PT WAS STARTED ON ANTIBIOTICS FROM 1730 FROM ER. PT WAS GIVEN ALL THE ORDERED ANTIBIOTIC DOSES. PT WAS ALSO GIVEN ORDERED DOSE OF LACOSAMIDE PER DR. HUSSEIN.PT SCREAMING WHILE PEEING. ORDER FOR DIGGS GIVEN. PT TRYING TO PULL HIS IVS AND DIGGS CATHETER. ORDER FOR RESTRAINTS GIVEN. NEUROLOGICALLY PT MORE AWAKE, CAN SLOWLY VERBALIZE THE YEAR AND HIS NAME, OBEYS COMMANDS NOW. CONTINUE TO MONITOR THROUGHOUT THE NIGHT.
--- NOTE | 2019-08-27 01:00 | NUR ---
PT SCREAMING AND TRYING TO SLIDE HIS LEGS OFF THE BED. PT PULLING ON HIS RESTRAINTS AND TRYING TO GRAB THE DIGGS. PRACTICE ARCHITECT MELVIN NOTIFIED ABOUT PT AGITATION. ORDER FOR ONE TIME DOSE OF 1MG ACTIVAN GIVEN.
[2019-08-27 05:27] LABS: ABSOLUTE NEUTROPHILS 6.4 thou/uL (1.4-8.2); BASOPHILS 0.4 % (0.0-2.0); EOSINOPHILS 0.2 % (0.0-3.0); HEMATOCRIT 42.7 % (42.0-52.0); HEMOGLOBIN 14.1 gm/dL (14.0-18.0); LYMPHOCYTES 18.4 % (24.0-44.0); MCH 31.7 pg (26.0-34.0); MONOCYTES 4.5 % (1.0-8.0); PLATELET COUNT 308 thou/uL (150-400); POLYS 76.5 % (36.0-66.0); RBC 4.45 mil/uL (4.50-6.00); RDW 13.3 % (10.5-14.5); WBC 8.3 thou/uL (4.0-11.0)
[2019-08-27 05:44] LABS: APTT 27.5 Seconds (24.5-32.8); INR 1.1
[2019-08-27 05:53] LABS: ALBUMIN 3.8 g/dL (3.4-5.0); CREATININE 1.1 mg/dL (0.7-1.3); MAGNESIUM 1.8 mg/dL (1.8-2.4); POTASSIUM 4.2 mmol/L (3.5-5.1); TOTAL BILIRUBIN 0.5 mg/dL (<0.1-1.0); TOTAL PROTEIN 8.4 g/dL (6.4-8.2)
--- NOTE | 2019-08-27 13:00 | NUR ---
TO INTERVENTIONAL RADIOLOGY WITH IR NURSE FOR LUMBAR PUNCTURE. PERMIT ON FRONT OF CHART.
--- NOTE | 2019-08-27 13:35 | NUR ---
CM ASSESSMENT: CASE OPENED FOR DC PLANNING. CLINICAL INFO REVIEWED. PT ADMITS FROM LTC AT [facility] SINCE 10/2017. PT HAD WITNESSED SEIZURE. HX SCHIZO AFFECTIVE DISORDER. CURRENTLY IN ICU WITH NEURO CONSULTED. PT DROWSY THIS AM. CALLED PARENTS IN [place] AND SPOKE WITH YENY CASIANO SR. HE INDICATES FACILITY NOTIFIED HIM OF TRANSFER AND INTENT FOR PT TO RETURN TO LTC AT [facility] WHEN MEDICALLY STABLE. UPDATE TO TARAH IN ADMISSIONS AT [facility] AND REQUESTED DC SURGICAL SERVICES MANAGER FAX H&P TO TARAH.
--- NOTE | 2019-08-27 14:06 | NUR ---
FAXED H/P TO [facility] RECEIVED CONFIRMATION AND LEFT MSG WITH TARAH IN ADM. DP TO FOLLOW.
[2019-08-27 14:12] LABS: CSF GLUCOSE 92 mg/dL (40-70)
[2019-08-27 14:18] LABS: CSF CLARITY CLEAR; CSF COLOR COLORLESS; CSF RBC 0 /mm3; CSF WBC 1 /mm3 (0-10); VOLUME 12 ml
[2019-08-27 14:33] LABS: CSF PROTEIN 71 mg/dL (15-45)
--- NOTE | 2019-08-27 15:44 | NUR ---
CONSULTED TO PLACE A PICC FOR A PATIENT ON MULTIPLE IV ANTIBIOTICS. ORDER AND CONSENT NOTED. CONSENT PER MEDICAL NECESSITY PATIENT HAS NO DPOA AVAILABLE AND HE IS NOT ALERT AND ORIENTATED X4. HE HAS A LEFT PACEMAKER AND HAS HAD RIGHT SHOULDER DISLOCATION AND SURGERY. A #5F TRIPLE LUMEN POWER PICC WAS PLACED PER HOSPITAL POLICY AFTER A BEDSIDE TIMEOUT WAS COMPLETED. THE PICC WAS TRIMMED TO 42CM AND ADVANCED WITHOUT DIFFICULTY. THE LINE WAS CONFIRMED BY THE RADIOLOGIST TO BE AT THE CA[facility] AND IN GOOD POSITION FOR USE.
--- NOTE | 2019-08-27 17:08 | NUR ---
DR. HUSSEIN HERE. UPDATE GIVEN. MD STATES HE WILL CHANGE MEDS OVER TO PO AND PROBABLY KEEP HIM IN THE ICU ONE MORE NIGHT. STATES EEG LOOKED GOOD. UPDATE GIVEN. ORDERS. GIVEN.
[2019-08-28] VITALS (14 sets, daily range): BP systolic 111–149; BP diastolic 68–99
--- NOTE | 2019-08-28 06:01 | NUR ---
Patient alert to self and time. Reoriented to place. Able to voice needs. On room air. Reich patent, urine output greater than 30ml/hr. Restraints removed over night. Patient remains calm and cooperative. Patient redirectable. Received diet. Intaking adecuate amount of oral fluids. Plan of care discussed with patient. No seizure like activity throughout the night. Patient progressing towards goal. No signs of accute distress noted. Will continue to monitor.
--- NOTE | 2019-08-28 09:10 | NUR ---
1912 report received see assessment. pt progressing toward goals.
--- NOTE | 2019-08-28 13:33 | NUR ---
NOTIFIED TARAH IN ADM AT [facility] THAT PT MIGHT DC OVER WEEKEND FAXED UPDATE 08/27 IF PT DISCHARGES OVER WEEKEND PLEASE FAX DC ORDERS/SUMMARY TO [facility] [phone] AND CALL [phone] TO SET UP TRANSPORT.
--- NOTE | 2019-08-28 17:21 | NUR ---
PATIENT ADMITTED TO ROOM FROM ICU. HAS HAS BEEN SLEEPING THROUGH THIS TIME. HE IS ALERT ORIENTED X4. DENIES PAIN. RESPIRATIONS ARE EVEN NON LABORED. PLEASANT WITH CARE.
--- NOTE | 2019-08-28 17:54 | HC ---
[facility] [place] [address] CONSULTATION Name: YENY CASIANO Room #: 357- ADM IN M.R.#: [id number] Admission: 08/26/19 Attend Phys: Oniel Waller MD Discharge: Date of : 66 Report #: [id number] THIS REPORT FOR: cc: Don Chang MD, Shyam MD Geha,Mello Isaac MD ~ THIS REPORT FOR: //name// CC: Johnnie Chang DATE OF SERVICE: 08/27/2019 INFECTIOUS DISEASE CONSULTATION REASON FOR CONSULTATION: Evaluate seizure and low-grade fever. HISTORY OF PRESENT ILLNESS: The patient is a 48-year-old with known seizure disorder, lives in a nursing facility, presents with acute onset of seizures on 08/26/2019. He remained encephalopathic. Continues to have amnesia for the event. Continues with slowed mentation. Has been evaluated by Neurology. He is being assessed by Occupational and Speech therapy. His seizures now under control. He is more alert now and has had low-grade fever. No report of trauma. Unclear if he was taking his medications appropriately. He did have low-grade fever. Hemodynamically, he has been stable. REVIEW OF SYSTEMS: A 10-point review of systems was negative other than what has been described above. ALLERGIES: ADHESIVE TAPE, LOVENOX, EPHEDRINE, GUAIFENESIN, PHENYTOIN, SULFA, TOPIRAMATE, VALPROIC ACID. MEDICATIONS: As noted on his MAR, reportedly on Neurontin, carbamazepine, omeprazole, albuterol, sertraline, Keppra, Symbicort, Vimpat, Flexeril, fenofibrate, fish oil, Lamictal, lorazepam, now on antibiotic therapy. PAST MEDICAL HISTORY: Schizophrenia, seizure disorder, dementia, gastroesophageal reflux, COPD, depression, neurostimulator placement, PTSD, cholecystectomy, migraine headaches. FAMILY HISTORY: Noncontributory. SOCIAL HISTORY: He is a smoker of cigarettes. No significant alcohol intake. PHYSICAL EXAMINATION: [facility] [address] [address] CONSULTATION Name: YENY CASIANO Room #: 357-P [facility] [place] M.R.#: [id number] Admission: 08/26/19 Attend Phys: Oniel Waller MD Discharge: Date of : 66 Report #: [id number] VITAL SIGNS: Currently afebrile and hemodynamically stable. SKIN: Without rash or decubitus. He did have some bruising to his right knee. No palpable adenopathy. Mildly obese. HEENT: Eyes, without scleral icterus or conjunctivitis. Mouth without mucositis. There was no tongue biting evident with no lacerations. NECK: Supple. LUNGS: Clear to auscultation. HEART: Regular, without murmur. ABDOMEN: Soft and nontender with no hepatosplenomegaly or mass. EXTREMITIES: Without clubbing, cyanosis or edema. Able to move all four extremities. NEUROLOGIC: Cranial nerves intact. Strength was symmetric in the upper and lower extremities. Sensation in the upper and lower extremities were normal. Back was nontender. The patient was unable to follow commands consistently; however, he was alert. LABORATORY STUDIES: Reviewed. Microbiology reviewed. Chest x-ray, abdominal CT scan and CT of the head reviewed. IMPRESSION: A 48-year-old with encephalopathy, seizures, and underlying dementia. Unclear if this is all postictal state or he has had a cerebral insult that triggered the seizures. We will need to make sure that we are not dealing with viral encephalitis. I doubt bacterial infection. RECOMMENDATIONS: Perform lumbar puncture. Continue antibiotic coverage, pending these studies. Continue ICU support. Neurology is assisting with seizure medication. I have discussed with nursing at the bedside. We will make adjustments once LP studies are back. <ELECTRONICALLY SIGNED> By: Mello Lopez MD 08/28/19 [id number] [id number] Mello Lopez MD /nt
[2019-08-28 18:05] LABS: HSV PCR SOURCE CSF
[2019-08-29 00:10] VITALS: BP 149/88
--- NOTE | 2019-08-29 02:07 | NUR ---
ASSUMED CARE OF PATIENT AT 1900. VSS, AFEBRILE. UP TO THE BSC TO HAVE BOWEL MOVEMENT. SLEEPING THROUGH THE REST OF THE NIGHT. NO SEIZURE ACTIVITY NOTED. SEIZURE PRECAUTIONS IMPLEMENTED. DIGGS TO DEPENDENT DRAINAGE. PROGRESSING SLOWLY TOWARDS POC GOALS.
[2019-08-29 04:00] VITALS: BP 144/88
[2019-08-29 07:09] VITALS: BP 119/76
[2019-08-29 10:58] VITALS: BP 137/92
[2019-08-29 15:21] VITALS: BP 121/83
[2019-08-31 10:08] LABS: HSV 1 DNA Negative (Negative); HSV 2 DNA Negative (Negative)
--- NOTE | 2019-09-09 18:31 | HC ---
[facility] [place] [address] CONSULTATION Name: YENY CASIANO Room #: 357-P [facility] IN M.R.#: [id number] Admission: 08/26/19 Attend Phys: Oniel Waller MD Discharge: 08/29/19 Date of : 66 Report #: [id number] THIS REPORT FOR: //name// CC: Johnnie Waller Don Akkulugari DATE OF SERVICE: 08/26/2019 HISTORY OF PRESENT ILLNESS: This is a 48-year-old male patient who was seen by me for seizure. I reviewed the patient's prior records and talked to the Emergency Room physician. The patient is not able to provide any history. This patient has a known history of intractable seizures. He has been seen by multiple neurologists. He usually sees an epileptologist at [facility]. He is on multiple medications. The medications include carbamazepine and Vimpat, what I can tell from the records. He was given Keppra in the Emergency Room as I understand and that was given IV. This patient was admitted here with encephalopathy. People think he is not the baseline, and I am not sure what his baseline is, but from my recollection and from what is there, he is not back to his baseline. That also becomes difficult to tell because he has a history of dementia and schizophrenia, which contaminate all the symptoms. REVIEW OF SYSTEMS: Positive for dementia. It is also positive for seizure disorder. He continues to have multiple breakthrough seizures. He does not provide me a good history of what medications he is on. I can get better history only from the records. This was his relevant 14-point review of system, the best I can get. Some of the history indicates he has a neurostimulator, another one indicates that he may have PTSD, but presently the patient is nonverbal. PAST MEDICAL HISTORY: Positive for seizure. FAMILY HISTORY: Unavailable. SOCIAL HISTORY: Also unavailable. PHYSICAL EXAMINATION: Very limited. He does not say anything. Sometime he says things which I cannot understand. Cranial nerve examination 212 was attempting but the patient did not cooperate. I cannot tell whether he can move anything or not because he will not do it for me. He does not appear to have any respiratory difficulty. He appeared to be stable from cardiac perspective. His blood pressure is 152/90, respiration is 14, pulse is 95, temperature is 97. LABORATORY DATA: Indicate a white count of 7.2. Sodium is normal at 138. IMPRESSION: Very difficult to form because we do not have any history. I [facility] [address] [place] [address] CONSULTATION Name: YENY CASIANO Room #: [address] [place] [address] IN M.R.#: [id number] Admission: 08/26/19 Attend Phys: Oniel Waller MD Discharge: 08/29/19 Date of : 66 Report #: [id number] cannot even confirm what anticonvulsant he is on. It would appear definite that he is on 2000 mg p.o. b.i.d. of Ragini; we can continue that. We need to find out if he is on Lamictal or carbamazepine or whether he is on Vimpat and carbamazepine. If he is on Vimpat, that can be given IV, but if he is on carbamazepine and Lamictal, that has to be given p.o. and that will make the situation difficult. I am going to get a stat EEG done on this patient and we will make an attempt to find out what anticonvulsant he is on and follow up with you. Thank you very much for this referral. <ELECTRONICALLY SIGNED> By: Johnnie Peters MD 09/09/19 1831 [id number] Johnnie Peters MD /nt
--- NOTE | 2019-09-09 18:32 | EEG ---
[facility] [place] [address] ELECTROENCEPHALOGRAM Name: YENY CASIANO Room #: 357-P [facility] IN M.R.#: [id number] Admission: 08/26/19 Attend Phys: Oniel Waller MD Discharge: 08/29/19 Date of : 66 Report #: [id number] THIS REPORT FOR: //name// CC: Johnnie Walelr Don Akkulugari DATE OF SERVICE: 08/26/2019 This patient is being evaluated for seizure. This patient's EEG was done by placing the electrode by standard 10-20 system of electrode placement. Both referential and sequential montages were used for recording. Background activity in this patient's EEG is difficult to determine because it is all intermixed with a seizure activity. It appeared to be about 4-5 Hz. Photic stimulation is unremarkable. 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 Thank you very much for this referral. <ELECTRONICALLY SIGNED> By: Johnnie Peters MD 09/09/19 1832 [id number] Johnnie Peters MD /nt
== END 2019-08-29 17:58 | DRG 100 ==
LOC: ER 09:55 → ICU 17:00 → EROBS 17:00 → 2N 18:43 → ICU 18:48 → 3W 08-28 15:08
PROVIDERS: Emergency Medicine; Specialist; ADMIT Internal Medicine
DX: G40.901 Epilepsy, unspecified, not intractable, with status epilepticus (principal); G93.41 Metabolic encephalopathy; J44.9 Chronic obstructive pulmonary disease, unspecified; F03.90 Unspecified dementia, unspecified severity, without behavioral disturbance, psychotic disturbance, mood disturbance, and anxiety; F32.9 Major depressive disorder, single episode, unspecified; K21.9 Gastro-esophageal reflux disease without esophagitis; F43.10 Post-traumatic stress disorder, unspecified; G43.909 Migraine, unspecified, not intractable, without status migrainosus; F20.9 Schizophrenia, unspecified; Z96.9 Presence of functional implant, unspecified; F17.210 Nicotine dependence, cigarettes, uncomplicated; E66.9 Obesity, unspecified; R31.9 Hematuria, unspecified; G44.89 Other headache syndrome; Z79.82 Long term (current) use of aspirin; Z68.30 Body mass index [BMI] 30.0-30.9, adult; Z90.49 Acquired absence of other specified parts of digestive tract; Z79.899 Other long term (current) drug therapy; Z88.2 Allergy status to sulfonamides; Z91.048 Other nonmedicinal substance allergy status
CPT/HCPCS: 10078; 10879; 27000